=== PATIENT | male | born 1935 | race Caucasian/White ===

== ENCOUNTER 2020-03-18 12:03 | Emergency (ER) | payer MEDICARE ==
[~2020-03-18] VITALS: Ht 180.3 cm; Wt 96.0 kg
--- NOTE | 2020-03-18 12:24 | EKG ---
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
[2020-03-18 12:41] LABS: BASO # 0.1 x10^3/uL (0.0-0.2); BASO % 1 % (0-3); EOS # 0.3 x10^3/uL (0.0-0.7); EOS % 3 % (0-3); HEMATOCRIT 37.2 % (39.0-53.0); HEMOGLOBIN 12.5 g/dL (13.0-17.5); LYMPH # 1.7 x10^3/uL (1.0-4.8); LYMPH % 17 % (24-48); MEAN CORPUSCULAR HEMOGLOBIN 32 pg (25-35); MEAN CORPUSCULAR HGB CONC 34 g/dL (31-37); MEAN CORPUSCULAR VOLUME 95 fL (79-100); MONO # 0.9 x10^3/uL (0.0-1.1); MONO % 9 % (0-9); NEUT % 70 % (31-73); PLATELET COUNT 244 x10^3/uL (140-400); RED BLOOD COUNT 3.92 x10^6/uL (4.30-5.70); RED CELL DISTRIBUTION WIDTH 14.5 % (11.5-14.5)
[2020-03-18 12:44] LABS: CALCIUM 9.7 mg/dL (8.5-10.1); CREATININE 1.4 mg/dL (0.7-1.3); GFR 48.3; POTASSIUM 4.4 mmol/L (3.5-5.1)
--- NOTE | 2020-03-18 12:56 | RAD ---
CT HEAD WO CONTRAST History:Dizziness Comparison: None. Technique: Noncontrast CT imaging was performed of the head. Exposure: One or more of the following individualized dose reduction techniques were utilized for this examination: 1. Automated exposure control 2. Adjustment of the mA and/or kV according to patient size 3. Use of iterative reconstruction technique. Findings: There is motion degradation, some images repeated. No convincing acute intracranial hemorrhage is identified allowing for motion. There is [id number] supratentorial atrophy, ventricular size proportionate to sulcal spaces. There is some scattered ill-defined low-density of the supratentorial parenchyma bilaterally. There is atherosclerotic calcification of the intradural vertebral arteries and carotid siphons. IMPRESSION: 1. There is no convincing evidence of acute intracranial hemorrhage. 2. There is supratentorial atrophy. 3. Ill-defined low-density of the supratentorial parenchyma is nonspecific although more commonly due to chronic microvascular ischemic disease. Electronically signed by: Naren Gallegos MD (03/18/2020 12:53 PM) [id number]
[2020-03-18 13:01] LABS: ALBUMIN 3.1 g/dL (3.4-5.0); ALBUMIN/GLOBULIN RATIO 0.9 (1.0-1.7); TOTAL BILIRUBIN 0.6 mg/dL (0.2-1.0); TOTAL PROTEIN 6.7 g/dL (6.4-8.2)
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
--- NOTE | 2020-03-18 13:17 | RAD ---
CT scan of the abdomen and pelvis without contrast 03/18/2020 CLINICAL HISTORY: Left flank pain. TECHNIQUE: Unenhanced, contiguous, 3 mm axial sections were obtained through the abdomen and pelvis. One or more of the following individualized dose reduction techniques were utilized for this study: 1. Automated exposure control. 2. Adjustment of the mA and/or kV according to patient size. 3. Use of iterative reconstruction technique. FINDINGS: Images through the lung bases demonstrate minimal dependent subsegmental atelectasis bilaterally. There is mild to moderate cardiomegaly. The liver, spleen, pancreas, and adrenal glands are within normal limits. Rounded low-attenuation lesions are seen involving both kidneys. These measure 5 mm to 4.5 cm in size. They likely represent cysts. No further imaging workup is recommended. No renal or ureteral calculus is seen. There is no evidence of obstruction of either collecting system. Atherosclerotic calcification of the abdominal aorta and its branches is seen. Aneurysmal dilatation of the abdominal aorta is seen at the origin of the superior mesenteric artery. The aneurysm measures 7.8 cm in greatest AP diameter and 6.4 cm in greatest transverse diameter. Increased density is seen within the adjacent retroperitoneal fat concerning for rupture. This aneurysm does not extend to involve either common iliac artery. Images through the pelvis demonstrate the urinary bladder distended with urine. The prostate gland is enlarged likely related to BPH. Calcifications are seen within the pelvis consistent with phleboliths. A large fat-containing left inguinal hernia is seen measures approximately 17 cm craniocaudal dimensions. Mild S-shaped curvature of the thoracolumbar spine is seen. Degenerative changes are seen involving the thoracic and throughout the lumbar spine along with both hips. IMPRESSION: 7.8 cm AAA with evidence of rupture. These findings were discussed with Dr. Allen. FOR INTERNAL CODING PURPOSES RESULT CODE: (C) Electronically signed by: Edgar Ames MD (03/18/2020 1:14 PM) [id number]
--- NOTE | 2020-03-18 13:22 | RAD ---
PORTABLE CHEST 1V History: Reason: near syncope / Spl. Instructions: / History: Comparison: January 09, 2020 Findings: Low lung volumes. Small left pleural effusion. Patchy left basilar opacity. No pneumothorax. Prior median sternotomy. Unchanged heart size. Impression: 1. Small left pleural effusion adjacent opacity, may represent atelectasis or consolidation. Electronically signed by: Jeff Jonas DO (03/18/2020 1:19 PM) [id number]
[2020-03-18 13:24] VITALS: BP 133/77
[2020-03-18] MEDS ORDERED: ONDANSETRON PF 4 MG/2 ML VIAL. IVP ONE (14:00)
[2020-03-18] MEDS ORDERED: ONDANSETRON PF 4 MG/2 ML VIAL. ONE (14:01)
== END 2020-03-18 14:08 | disposition short-term general hospital (02) ==
LOC: ER 12:03
DX: I71.3 Abdominal aortic aneurysm, ruptured (principal); R55 Syncope and collapse; R21 Rash and other nonspecific skin eruption; M54.89 Other dorsalgia; E11.9 Type 2 diabetes mellitus without complications; E78.00 Pure hypercholesterolemia, unspecified; I11.9 Hypertensive heart disease without heart failure; Z95.1 Presence of aortocoronary bypass graft
CPT/HCPCS: 36415; 70450; 71045; 74176; 80053; 82553; 83735; 84484; 85025; 93005; 96374; 96376; 99291; J3010